=== PATIENT | male | born 1970 | race Caucasian/White ===

== ENCOUNTER 2021-05-17 07:53 | Emergency (ER) | payer MEDICAID ==
[~2021-05-17] VITALS: Ht 172.7 cm; Wt 113.4 kg
[2021-05-17 07:53] VITALS: BP_SYST 142
--- NOTE | 2021-05-17 07:55 | NUR ---
BROUGHT BACK TO BED #4 AND TRIAGED. REPORT GIVEN TO JEFF
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
--- NOTE | 2021-05-17 08:08 | NUR ---
DR LESLIE AT BEDSIDE FOR EVALUATION
[2021-05-17] MEDS ORDERED: SULF1TAB48 PO (08:14)
--- NOTE | 2021-05-17 08:33 | NUR ---
Patient given written and verbal discharge instructions and verbalizes understanding. ER MD discussed with patient the results and treatment provided. Patient in stable condition. ID arm band removed. Rx of BACTRIM given. Patient educated on pain management and to follow up with PMD. Pain Scale 0/10. Opportunity for questions provided and answered. Medication side effect fact sheet provided.
[2021-05-17] MEDS ORDERED: CLIN300C12 PO (16:39)
== END 2021-05-17 08:33 | disposition home or self-care (01) ==
LOC: SED 07:53
DX: L03.113 Cellulitis of right upper limb (principal); Z79.899 Other long term (current) drug therapy
CPT/HCPCS: 99283

== ENCOUNTER 2021-05-17 16:10 | Emergency (ER) | payer MEDICAID ==
[~2021-05-17] VITALS: Ht 172.7 cm; Wt 113.4 kg
[2021-05-17 16:10] VITALS: BP_SYST 138
[~2021-05-17 16:10] MED LIST: SULF1TAB48 PO
[2021-05-17] MEDS ORDERED: CLIN300C12 PO (16:39)
[2021-05-17] MEDS ORDERED: DIPHENHYDRAMINE HCL 25 MG CAPSULE PO ONE (16:45)
[2021-05-17] MEDS ORDERED: CLINDAMYCIN HCL 150 MG CAPSULE PO ONE (16:45)
[2021-05-17 16:48] VITALS: BP_SYST 138
== END 2021-05-17 16:48 | disposition home or self-care (01) ==
LOC: SED 16:10
DX: L03.113 Cellulitis of right upper limb (principal); T40.3X5A Adverse effect of methadone, initial encounter; I10 Essential (primary) hypertension; F15.90 Other stimulant use, unspecified, uncomplicated; F17.210 Nicotine dependence, cigarettes, uncomplicated; Z79.899 Other long term (current) drug therapy; Z71.6 Tobacco abuse counseling; Y92.89 Other specified places as the place of occurrence of the external cause
CPT/HCPCS: 99283; Q0163

== ENCOUNTER 2021-12-27 13:10 | Emergency (ER) | payer MEDICAID ==
[~2021-12-27] VITALS: Ht 172.7 cm; Wt 108.9 kg
[~2021-12-27 13:10] MED LIST changes: +CLIN-142 PO
[2021-12-27 13:37] VITALS: BP_SYST 173
[2021-12-27] MEDS ORDERED: KETOROLAC TROMETHAMINE 60 MG/2 ML VIAL IM ONE (14:45)
== END 2021-12-27 16:01 | disposition home or self-care (01) ==
LOC: SED 13:10
DX: M25.511 Pain in right shoulder (principal); I10 Essential (primary) hypertension; Z79.899 Other long term (current) drug therapy
CPT/HCPCS: 73030; 82962; 96372; 99283; J1885

== ENCOUNTER 2022-02-12 21:52 | Emergency (ER) | payer MEDICAID ==
[~2022-02-12] VITALS: Ht 172.7 cm; Wt 108.9 kg
[2022-02-12 22:14] VITALS: BP_SYST 189
[2022-02-12] MEDS ORDERED: AMOX500C2 PO (22:22)
[2022-02-12] MEDS ORDERED: AMOXICILLIN 500 MG CAPSULE PO ONE (22:30)
[2022-02-12 22:47] VITALS: BP_SYST 178
== END 2022-02-12 22:47 | disposition home or self-care (01) ==
LOC: SED 21:52
DX: L08.9 Local infection of the skin and subcutaneous tissue, unspecified (principal); I10 Essential (primary) hypertension
CPT/HCPCS: 99283

== ENCOUNTER 2022-06-26 09:42 | Emergency (ER) | payer MEDICAID ==
[~2022-06-26] VITALS: Ht 172.7 cm; Wt 120.2 kg
[~2022-06-26 09:42] MED LIST changes: +AMOX500C2 PO
[2022-06-26 10:17] VITALS: BP_SYST 153
--- NOTE | 2022-06-26 10:17 | NUR ---
Patient triaged and placed in waiting room. VSS and patient appears in no acute distress at this time. Accompanied by FRIEND, awaiting available bed, and MD notified of need for MSE.
--- NOTE | 2022-06-26 13:25 | NUR ---
Patient left without being seen.
== END 2022-06-26 13:25 | disposition left against medical advice (07) ==
LOC: SED 09:42
DX: R22.0 Localized swelling, mass and lump, head (principal); Z53.21 Procedure and treatment not carried out due to patient leaving prior to being seen by health care provider

== ENCOUNTER 2022-07-16 22:11 | Emergency (ER) | payer MEDICAID ==
[~2022-07-16] VITALS: Ht 172.7 cm; Wt 116.6 kg
[2022-07-16 22:13] VITALS: BP_SYST 131
--- NOTE | 2022-07-16 22:28 | NUR ---
PT HERE C/O TOOTACHE AND LT FACIAL SWELLING X2 DAYS, PT STATED THAT HE NOTICED HIS LT FACE GOT SWOLLEN WHEN HE WOKE UP THIS AM. PER PT HE IS ON ANTIBIOTIC THERAPY, DENIES FEVER. PT DENIES SEEING HIS DENTIST HX:HTN,HYPOLGYCEMIA PT AAOX4, NOT IN ANY DISTRESS AT THIS TIME, PENDING MD BERNAL
--- NOTE | 2022-07-17 00:39 | NUR ---
ER MD Johnson at bedside speaking to patient regarding his condition.
[2022-07-17] MEDS ORDERED: CLINDAMYCIN 900 mg/50mL D5W 50 ML IV ONE (00:45)
--- NOTE | 2022-07-17 00:50 | NUR ---
Lab at bedside.
--- NOTE | 2022-07-17 01:00 | NUR ---
# 20 gauge angiocath placed to . Use of asceptic technique. Opsite placed over site. Blood return noted. Blood for lab drawn from site. Flushed with 10 cc of normal saline. No evidence of infiltration noted. Patient tolerated well.
[2022-07-17 01:45] LABS: BASOPHILS # (AUTO) 0.1 K/uL (0.0-0.2); BASOPHILS % (AUTO) 1.1 % (0.0-2.0); EOSINOPHILS # (AUTO) 0.1 K/uL (0.0-0.4); EOSINOPHILS % (AUTO) 1.6 % (0.0-4.0); HEMATOCRIT 43.8 % (36-54); LYMPHOCYTES # (AUTO) 1.7 K/uL (1.0-5.5); LYMPHOCYTES % (AUTO) 21.8 % (20.5-51.5); MEAN CORPUSCULAR VOLUME 88 fL (79.0-98.0); MONOCYTES # (AUTO) 0.7 K/uL (0.0-1.0); MONOCYTES % (AUTO) 8.3 % (1.7-9.3); NEUTROPHILS # (AUTO) 5.4 K/uL (1.8-7.7); NEUTROPHILS % (AUTO) 67.2 % (40.0-70.0); PLATELET COUNT (AUTO) 188 K/uL (130-430); RED BLOOD CELL COUNT(AUTO) 4.95 MIL/uL (4.2-6.2); RED CELL DISTRIBUTION WIDTH 14.7 % (9.0-15.0)
[2022-07-17 01:53] LABS: CALCIUM 8.6 mg/dL (8.4-11.0); CREATININE 1.15 mg/dL (0.55-1.30); POTASSIUM 3.7 mmol/L (3.5-5.1)
--- NOTE | 2022-07-17 02:09 | NUR ---
Patient taken to radiology for CT scan via wheelchair accompanied by RT at this time.
--- NOTE | 2022-07-17 02:15 | NUR ---
Patient returning from CT scan accompanied by RT.
--- NOTE | 2022-07-17 04:00 | NUR ---
Patient sleeping comfortably in bed with side rails raised. Nad noted at this time.
--- NOTE | 2022-07-17 05:10 | NUR ---
WALDO Johnson at bedside.
[2022-07-17] MEDS ORDERED: CLINDAMYCIN PHOSPHATE 300 MG/2 ML VIAL IM ONE (05:15)
[2022-07-17] MEDS ORDERED: CLINDAMYCIN HCL 150 MG CAPSULE PO ONE (05:45)
[2022-07-17] MEDS ORDERED: IBUP-1971 PO (05:49)
[2022-07-17] MEDS ORDERED: CLIN-142 PO (05:49)
[2022-07-17 05:52] VITALS: BP_SYST 135
--- NOTE | 2022-07-17 05:52 | NUR ---
Patient given written and verbal discharge instructions and verbalizes understanding. ER MD discussed with patient the results and treatment provided. Patient in stable condition. ID arm band removed. IV catheter removed intact and dressing applied, no active bleeding. Rx of ABX given. Patient educated on pain management and to follow up with PMD. Pain Scale 0/10. Opportunity for questions provided and answered. Medication side effect fact sheet provided. Nad noted at this time.
== END 2022-07-17 05:52 | disposition home or self-care (01) ==
LOC: SED 22:11
DX: K04.7 Periapical abscess without sinus (principal); K08.89 Other specified disorders of teeth and supporting structures; I10 Essential (primary) hypertension; Z79.899 Other long term (current) drug therapy
CPT/HCPCS: 99284; 80048; 85025; 36415; 96365; 70486; 76376; J3490; Q9967

== ENCOUNTER 2023-02-27 07:51 | Emergency (ER) | payer MEDICAID ==
[~2023-02-27] VITALS: Ht 172.7 cm; Wt 97.5 kg
[~2023-02-27 07:51] MED LIST changes: +IBUP-1971 PO
[2023-02-27 08:00] VITALS: BP_SYST 166
[2023-02-27] MEDS ORDERED: PENI250T2 PO (08:06)
[2023-02-27] MEDS ORDERED: NAPR-690 PO (08:06)
[2023-02-27] MEDS ORDERED: ceFAZolin SODIUM 1 GM VIAL IM ONE (08:15)
[2023-02-27 09:11] VITALS: BP_SYST 132
== END 2023-02-27 09:04 | disposition home or self-care (01) ==
LOC: SED 07:51
DX: M27.3 Alveolitis of jaws (principal); I10 Essential (primary) hypertension; Z79.899 Other long term (current) drug therapy
CPT/HCPCS: 99283; 96372; J0690

== ENCOUNTER 2023-03-16 17:38 | Emergency (ER) | payer MEDICAID ==
[~2023-03-16] VITALS: Ht 172.7 cm; Wt 108.9 kg
[~2023-03-16 17:38] MED LIST changes: +NAPR-690 PO; +PENI250T2 PO
[2023-03-16 17:40] VITALS: BP_SYST 175
--- NOTE | 2023-03-16 17:40 | NUR ---
BROUGHT IN BY [facility] AND TRIAGED. AWAITING ER BED AVAILABILITY
--- NOTE | 2023-03-16 18:20 | NUR ---
NURSE UNABLE TO OBTAIN IV ACCESS. DR. GARCIA STATES HE WILL ATTEMPT TO PLACE RIJ IV CATH.
--- NOTE | 2023-03-16 18:22 | NUR ---
DR. GARCIA AT BEDSIDE TO ASSESS PT.
[2023-03-16] MEDS ORDERED: MORPHINE 4 MG INJ. 4 MG/ML VIAL IVP ONE ×2 (18:30→20:45)
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
--- NOTE | 2023-03-16 19:32 | NUR ---
PT ENDORSED TO LISA MCCORMICK. ALL QUESTIONS AND CONCERNS ADDRESSED.
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
[2023-03-16 20:10] LABS: CALCIUM 8.3 mg/dL (8.4-11.0); CREATININE 1.03 mg/dL (0.55-1.30)
[2023-03-16 20:15] LABS: ALBUMIN 3.6 g/dL (3.4-4.8); TOTAL BILIRUBIN 0.3 mg/dL (0.0-1.0)
[2023-03-16 20:50] LABS: BASOPHILS % (AUTO) 0.3 % (0.0-2.0); EOSINOPHILS # (AUTO) 0.1 K/uL (0.0-0.4); HEMOGLOBIN 14.9 g/dL (14.0-18.0); LYMPHOCYTES # (AUTO) 1.2 K/uL (1.0-5.5); LYMPHOCYTES % (AUTO) 11.7 % (20.5-51.5); MEAN CORPUSCULAR HEMOGLOBIN 29 pg (27-31); MEAN CORPUSCULAR HGB CONC 33 % (32-36); MEAN CORPUSCULAR VOLUME 87 fL (79.0-98.0); MONOCYTES # (AUTO) 0.8 K/uL (0.0-1.0); MONOCYTES % (AUTO) 8.3 % (1.7-9.3); NEUTROPHILS % (AUTO) 78.7 % (40.0-70.0); PLATELET COUNT (AUTO) 190 K/uL (130-430); RED BLOOD CELL COUNT(AUTO) 5.18 MIL/uL (4.2-6.2); RED CELL DISTRIBUTION WIDTH 14.7 % (9.0-15.0); WHITE BLOOD COUNT (AUTO) 10.2 K/uL (4.8-10.8)
[2023-03-16 20:53] LABS: PROTHROMBIN TIME 10.3 SECS (9.5-12.5)
[2023-03-16] MEDS ORDERED: HYDR-3917 PO (21:59)
[2023-03-16] MEDS ORDERED: IBUP-1969 PO (21:59)
--- NOTE | 2023-03-16 22:15 | NUR ---
Patient given written and verbal discharge instructions and verbalizes understanding. ER Dr. Barroso discussed with patient the results and treatment provided. Patient in stable condition. ID arm band removed. IV catheter removed intact and dressing applied, no active bleeding. Rx of [place], motrin given. Patient educated on pain management and to follow up with PMD. Pain Scale 2/10. Opportunity for questions provided and answered. Medication side effect fact sheet provided.
[2023-03-16 22:27] VITALS: BP_SYST 182
== END 2023-03-16 22:15 | disposition home or self-care (01) ==
LOC: SED 17:38
DX: S42.351A Displaced comminuted fracture of shaft of humerus, right arm, initial encounter for closed fracture (principal); S42.214A Unspecified nondisplaced fracture of surgical neck of right humerus, initial encounter for closed fracture; I10 Essential (primary) hypertension; Z79.899 Other long term (current) drug therapy; V18.0XXA Pedal cycle driver injured in noncollision transport accident in nontraffic accident, initial encounter; Y93.89 Activity, other specified; Y92.89 Other specified places as the place of occurrence of the external cause; Y99.8 Other external cause status
CPT/HCPCS: 99284; 96374; 80053; 85025; 85610; 36415; 73030; 73060; 73090; 96376; 29125; J2270

== ENCOUNTER 2024-02-05 18:43 | Emergency (ER) | payer MEDICAID ==
[~2024-02-05] VITALS: Ht 172.7 cm; Wt 113.4 kg
[~2024-02-05 18:43] MED LIST changes: +HYDR-3917 PO; +IBUP-1969 PO
[2024-02-05 19:00] VITALS: BP_SYST 202; PULSE 115; RESP 18; TEMP 98.2; O2SAT 97
[2024-02-05] MEDS ORDERED: DIPHENHYDRAMINE INJ 50 MG/ML VIAL IVP ONE (19:45)
[2024-02-05 19:57] LABS: CALCIUM 8.4 mg/dL (8.4-11.0); CREATININE 1.23 mg/dL (0.55-1.30); POTASSIUM 3.7 mmol/L (3.5-5.1)
[2024-02-05 19:58] LABS: PROTHROMBIN TIME 10.4 SECS (9.5-12.5)
[2024-02-05 20:01] LABS: ALBUMIN 3.2 g/dL (3.4-4.8); BILIRUBIN,DIRECT 0.1 mg/dL (0.0-0.3); TOTAL BILIRUBIN 0.4 mg/dL (0.0-1.0); TOTAL PROTEIN, SERUM 7.9 g/dL (6.4-8.3)
[2024-02-05 20:07] LABS: BASOPHILS % (AUTO) 0.4 % (0.0-2.0); EOSINOPHILS # (AUTO) 0.1 K/uL (0.0-0.4); EOSINOPHILS % (AUTO) 0.9 % (0.0-4.0); HEMATOCRIT 43.1 % (36-54); HEMOGLOBIN 14.7 g/dL (14.0-18.0); LYMPHOCYTES # (AUTO) 1.2 K/uL (1.0-5.5); LYMPHOCYTES % (AUTO) 15.6 % (20.5-51.5); MEAN CORPUSCULAR HEMOGLOBIN 29 pg (27-31); MEAN CORPUSCULAR HGB CONC 34 % (32-36); MEAN CORPUSCULAR VOLUME 86 fL (79.0-98.0); MONOCYTES # (AUTO) 0.8 K/uL (0.0-1.0); MONOCYTES % (AUTO) 11.2 % (1.7-9.3); NEUTROPHILS # (AUTO) 5.3 K/uL (1.8-7.7); NEUTROPHILS % (AUTO) 71.9 % (40.0-70.0); PLATELET COUNT (AUTO) 183 K/uL (130-430); RED CELL DISTRIBUTION WIDTH 14.7 % (9.0-15.0); WHITE BLOOD COUNT (AUTO) 7.4 K/uL (4.8-10.8)
[2024-02-05] MEDS ORDERED: HYDR-3917 PO (21:14)
[2024-02-05] MEDS ORDERED: IBUP-1971 PO (21:14)
[2024-02-05] MEDS ORDERED: LOSA-412 PO (21:19)
[2024-02-05 21:39] VITALS: BP_SYST 167; PULSE 78; RESP 20; TEMP 98.2; O2SAT 97
== END 2024-02-05 21:39 | disposition home or self-care (01) ==
LOC: SED 18:43
DX: S00.81XA Abrasion of other part of head, initial encounter (principal); S70.01XA Contusion of right hip, initial encounter; S20.211A Contusion of right front wall of thorax, initial encounter; I10 Essential (primary) hypertension; Z79.899 Other long term (current) drug therapy; V89.2XXA Person injured in unspecified motor-vehicle accident, traffic, initial encounter; Y93.89 Activity, other specified; Y92.89 Other specified places as the place of occurrence of the external cause; Y99.8 Other external cause status
CPT/HCPCS: 99285; 70450; 80076; 80048; 82150; 82550; 83690; 85025; 85610; 85730; 36415; 71260; 72125; 76376; 74177; Q9967; J1200

== ENCOUNTER 2024-02-20 19:03 | Emergency (ER) | payer MEDICAID, OTHER ==
[~2024-02-20] VITALS: Ht 172.7 cm; Wt 106.6 kg
[~2024-02-20 19:03] MED LIST changes: +LOSA-412 PO
[2024-02-20 19:06] VITALS: BP_SYST 185; PULSE 98; RESP 20; TEMP 97.4; O2SAT 95
[2024-02-20] MEDS ORDERED: cefTRIAXone 2 GM VIAL ONE (21:03)
[2024-02-20 21:27] LABS: BASOPHILS # (AUTO) 0.1 K/uL (0.0-0.2); EOSINOPHILS # (AUTO) 0.1 K/uL (0.0-0.4); EOSINOPHILS % (AUTO) 1.5 % (0.0-4.0); HEMATOCRIT 40.7 % (36-54); LYMPHOCYTES # (AUTO) 1.6 K/uL (1.0-5.5); LYMPHOCYTES % (AUTO) 20.7 % (20.5-51.5); MEAN CORPUSCULAR HEMOGLOBIN 29 pg (27-31); MEAN CORPUSCULAR HGB CONC 34 % (32-36); MEAN CORPUSCULAR VOLUME 85 fL (79.0-98.0); MONOCYTES # (AUTO) 0.8 K/uL (0.0-1.0); MONOCYTES % (AUTO) 9.8 % (1.7-9.3); NEUTROPHILS # (AUTO) 5.3 K/uL (1.8-7.7); PLATELET COUNT (AUTO) 238 K/uL (130-430); RED BLOOD CELL COUNT(AUTO) 4.78 MIL/uL (4.2-6.2); RED CELL DISTRIBUTION WIDTH 14.8 % (9.0-15.0); WHITE BLOOD COUNT (AUTO) 7.9 K/uL (4.8-10.8)
[2024-02-20] MEDS: ONDANSETRON HCL 4 MG/2 ML VIAL IVP ONE (21:34)
[2024-02-20] MEDS: MORPHINE 4 MG INJ. 4 MG/ML VIAL IVP ONE (21:35)
[2024-02-20 21:51] LABS: ALBUMIN 3.2 g/dL (3.4-4.8); CALCIUM 7.8 mg/dL (8.4-11.0); CREATININE 1.04 mg/dL (0.55-1.30); TOTAL BILIRUBIN 0.3 mg/dL (0.0-1.0); TOTAL PROTEIN, SERUM 7.7 g/dL (6.4-8.3)
[2024-02-20 21:52] LABS: POTASSIUM 3.8 mmol/L (3.5-5.1)
[2024-02-20] MEDS ORDERED: OMEP20CA15 PO (22:34)
[2024-02-21 09:03] VITALS: BP_SYST 147; PULSE 91; RESP 18; TEMP 97.8; O2SAT 95
[2024-02-21] MEDS ORDERED: NALOXONE HCL 0.4 MG/ML AMP (NARCAN) IVP PRN ×2 (11:30)
[2024-02-21] MEDS ORDERED: ACETAMINOPHEN 325 MG TABLET PO PRN ×2 (11:30→12:45)
[2024-02-21] MEDS ORDERED: LORazepam 2 MG/ML VIAL IVP PRN (11:30)
[2024-02-21] MEDS ORDERED: HYDROcodone/ACETAMIN 5-325 MG TAB (NORCO/ VICODIN) PO PRN (11:30)
[2024-02-21] MEDS ORDERED: HYDROcodone/ACETAMIN 10-325 MG TAB PO PRN (11:30)
[2024-02-21] MEDS ORDERED: ONDANSETRON HCL 4 MG/2 ML VIAL IVP PRN (11:30)
[2024-02-21] MEDS ORDERED: OMEPRAZOLE Non-Formulary 20 MG CAPSULE.DR PO SCH (11:30)
[2024-02-21] MEDS ORDERED: PANTOPRAZOLE SODIUM 40 MG TAB PO ONE (12:45)
[2024-02-21] MEDS ORDERED: LOSARTAN POTASSIUM 25 MG TABLET PO ONE (12:45)
[2024-02-21] MEDS ORDERED: NORMAL SALINE 5 ML DISP.SYRIN IVF SCH (14:00)
[2024-02-21] MEDS ORDERED: cefTRIAXone 1 GM IVPB PREMIX 50 ML IV SCH (14:00)
[2024-02-22] MEDS ORDERED: PANTOPRAZOLE SODIUM 40 MG TAB PO SCH (09:00)
[2024-02-22] MEDS ORDERED: LOSARTAN POTASSIUM 25 MG TABLET PO SCH (09:00)
== END 2024-02-21 08:40 | disposition left against medical advice (07) ==
LOC: SED 19:03 → UNDOADMIN 22:22 → SMU 22:22 → UNDODISIN 02-21 22:00
DX: L03.115 Cellulitis of right lower limb (principal); I10 Essential (primary) hypertension
CPT/HCPCS: 99285; 96365; 93971; 96375; 80053; 85025; 87040; 36415; 73560; 73590; J0696; J2405; J2270